=== PATIENT | male | born 1940 | race African-American/Black ===

== ENCOUNTER 2017-11-11 14:19 | Inpatient (IN) ==
[2017-11-17] MEDS ORDERED: Metoprolol Tartrate 25 MG Tablet PO PRN (00:01)
[2017-11-17] MEDS ORDERED: Chlorhexidine Gluconate 2% 1 Pack (2 Cloths) TOPICAL PRN (00:01)
[2017-11-17] MEDS ORDERED: Sodium Chlor 0.9% Inj 500 ML IV.SIG PRN (00:01)
[2017-11-17] MEDS ORDERED: Naloxone Inj 0.4 MG/ML Vial IV.PUSH PRN (00:01)
[2017-11-17] MEDS ORDERED: Dextrose 50% in Water 50 ML Vial IV.PUSH PRN (00:01)
[2017-11-17] MEDS ORDERED: Bisacodyl 10 MG Supp RECTAL PRN (00:01)
[2017-11-17] MEDS ORDERED: Acetaminophen 325 MG Tablet PO PRN (00:01)
[2017-11-17] MEDS: Levothyroxine 112 MCG Tablet PO SCH (05:43)
[2017-11-17] MEDS: Heparin - SQ 10,000 UNITS/ML Vial SQ SCH ×3 (05:43→22:18)
[2017-11-17 08:10] LABS: Hematocrit 26.9 % (39.0-51.0); Hemoglobin 8.5 gm/dL (13.0-17.0); Mean Corpuscular HGB Conc 31.8 % (32.0-36.0); Mean Corpuscular Hemoglobin 23.1 pg (27.0-34.0); Mean Corpuscular Volume 72.6 fL (80.0-100.0); Mean Platelet Volume 7.5 fL (7.0-11.0); Platelet Count 391 th/mm3 (150-450); Red Blood Count 3.71 mil/mm3 (4.50-5.90); Red Cell Distribution Width 14.9 % (11.6-17.2); White Blood Count 4.5 th/mm3 (4.0-11.0)
[2017-11-17 08:38] LABS: Calcium 8.7 mg/dL (8.5-10.1); Carbon Dioxide 26.3 meq/L (21.0-32.0); Potassium 4.3 meq/L (3.5-5.1)
[2017-11-17] MEDS: Lisinopril 20 MG Tablet PO SCH ×2 (08:49→20:27)
[2017-11-17] MEDS: Pantoprazole Sodium 20 MG DR Tablet PO SCH (08:49)
[2017-11-17] MEDS: Ferrous Sulfate 325 MG Tablet PO SCH (08:49)
[2017-11-17] MEDS: Senna/Docusate Sodium 8.6/50 MG Tablet PO SCH ×2 (08:50→20:26)
[2017-11-17] MEDS: Collagenase Oint 30 GM Tube TOPICAL SCH (08:52)
[2017-11-17] MEDS: Insulin NovoLOG Aspart Correctional Sugar Inj SQ SCH ×4 (08:56→22:18)
--- NOTE | 2017-11-17 09:50 | P.PNPOD ---
Subjective Interval history: Right leg ulcers x 2. s/p Right leg I&D and wound debridement. Pt states pain is manageable with [place]. He denies any n/v/f/h/c/sob. Physical Exam Vital signs: Vital Signs 11/16/17 20:00 11/17/17 00:00 11/17/17 04:00 Temperature 98.2 F 97.9 F 97.9 F Pulse Rate 85 79 79 Respiratory Rate 17 16 16 Blood Pressure 181/82 H 154/82 H 160/72 H Pulse Oximetry 97 98 96 Intake & Output 11/16/17 11/17/17 11/17/17 18:59 06:59 18:59 Intake Total 1240 / 1240 Output Total 1225 / 1225 Balance Weight 116.8 kg 116.3 kg Intake: Oral 1240 / 1240 Output: Urine 1225 / 1225 Narrative: Right proximal lateral leg ulcer 6.5cm x 4.5cm x 1.0cm granular wound bed, no malodor, no erythema Right distal leg ulcer ulcer 6cm x 7cm x0 granular wound bed, no erythema, no malodor No other changes from pre operative consult Medications and Allergies Active Medications: Active Medications Acetaminophen (Tylenol) 650 mg PO Q4H PRN PRN Reason: TEMP > 100.4 Al Hydroxide/Mg Hydroxide (Milk Of Marti Walker) 30 ml PO Q12H PRN PRN Reason: Mild Constipation Aspirin (Aspirin Chew) 81 mg CHEW DAILY [facility] Last Admin: 11/17/17 08:50 Dose: 81 mg Bisacodyl (Dulcolax Supp) 10 mg RECTAL DAILY PRN PRN Reason: SEVERE CONSITIPATION Collagenase (Santyl Oint) 1 applicatio TOPICAL DAILY [facility] Last Admin: 11/17/17 08:52 Dose: 1 applicatio Dextrose (D50w Vial) 50 ml IV.PUSH UNSCH PRN PRN Reason: PER HYPOGLYCEMIA PROTOCOL Enalaprilat (Vasotec Inj) 2.5 mg IV.PUSH Q6H PRN PRN Reason: SBP>160, DBP>90 Ferrous Sulfate (Ferosul) 325 mg PO DAILY [facility] Last Admin: 11/17/17 08:49 Dose: 325 mg Glucagon (Glucagon Inj) 1 mg OTHER PRN PRN PRN Reason: for Hypoglycemia Protocol Heparin Sodium (Porcine) (Heparin Inj) 5,000 units SQ Q8HR [facility] Last Admin: 11/17/17 05:43 Dose: 5,000 units Hydralazine HCl (Apresoline) 10 mg PO Q6HR PRN PRN Reason: SBP>160, DBP>90 Ceftriaxone Sodium 2,000 mg/ (Sodium Chloride) 100 mls @ 200 mls/hr IV.SIG Q24H [facility] Insulin Aspart (Novolog Insulin Suppl Scale Inj) 0 unit SQ ACHS CORRECT SUGARS [facility]; Protocol Last Admin: 11/17/17 08:56 Dose: Not Given Insulin Detemir (Levemir Inj) 40 unit SQ HS [facility] Lactulose (Lactulose Liq) 30 ml PO DAILY PRN PRN Reason: SEVERE CONSITIPATION Levothyroxine Sodium (Synthroid) 112 mcg PO DAILY@0600 [facility] Last Admin: 11/17/17 05:43 Dose: 112 mcg Lisinopril (Prinivil) 20 mg PO BID [facility] Last Admin: 11/17/17 08:49 Dose: 20 mg Morphine Sulfate (Morphine Inj) 2 mg IV.SIG MoWeFr [facility] Naloxone HCl (Narcan Inj) 0.4 mg IV.PUSH UNSCH PRN PRN Reason: SEE LABEL COMMENTS Ondansetron HCl (Zofran Inj) 4 mg IV.PUSH Q6H PRN PRN Reason: NAUSEA OR VOMITING Oxycodone/Acetaminophen (Percocet 5/325 Mg) 1 tab PO Q4H PRN PRN Reason: PAIN 6-10 Last Admin: 11/17/17 09:41 Dose: 1 tab Pantoprazole Sodium (Protonix) 20 mg PO DAILY [facility] Last Admin: 11/17/17 08:49 Dose: 20 mg Pravastatin Sodium (Pravachol) 40 mg PO [facility] Senna/Docusate Sodium (Jayde-Colace) 1 tab PO BID [facility] Last Admin: 11/17/17 08:50 Dose: 1 tab Sennosides (Senokot) 17.2 mg PO Q12H PRN PRN Reason: Moderate Constipation Sodium Chloride (Ns Flush) 2 ml IV.FLUSH PRN PRN PRN Reason: FLUSH AFTER USING IV ACCESS Sodium Chloride (Ns Flush) 2 ml IV.FLUSH BID [facility] Last Admin: 11/17/17 08:50 Dose: 2 ml Allergies Allergy/AdvReac Type Severity Reaction Status Date / Time Penicillins Allergy Unknown UNKNOW Verified 11/16/17 10:12 Home Medications Medication Instructions Recorded Confirmed Type aspirin 81 mg PO DAILY 11/16/17 11/16/17 History ferrous sulfate 325 mg PO DAILY 11/16/17 11/16/17 History glipizide 5 mg PO DAILY 11/16/17 11/16/17 History insulin glargine [Lantus U-100 40 unit SUB-Q HS 11/16/17 11/16/17 History Insulin] levothyroxine 137 mcg PO DAILY 11/16/17 11/16/17 History metformin 500 mg PO BIDPC 11/16/17 11/16/17 History omeprazole 20 mg PO DAILY 11/16/17 11/16/17 History pravastatin 40 mg PO HS 11/16/17 11/16/17 History quinapril 20 mg PO DAILY 11/16/17 11/16/17 History Results - Labs CBC & Chem 7: 11/17/17 05:25 11/17/17 05:20 Labs: Laboratory Results - last 24 hr 11/15/17 11/15/17 11/16/17 06:23 06:23 06:18 WBC 6.4 RBC 3.52 L Hgb 8.5 L Hct 25.5 L MCV 72.4 L MCH 24.2 L MCHC 33.5 RDW 15.0 Plt Count 324 MPV 7.8 Sodium 136 137 Potassium 4.4 4.6 Chloride 103 105 Carbon Dioxide 25.2 24.3 Anion Gap 8 8 BUN 13 14 Creatinine 1.06 0.99 Estimated GFR 83 L 89 POC Glucose Random Glucose 137 H 143 H Calcium 8.4 L 8.6 11/16/17 11/17/17 11/17/17 06:18 05:20 05:25 WBC 5.7 4.5 RBC 3.67 L 3.71 L Hgb 8.8 L 8.5 L Hct 26.5 L 26.9 L MCV 72.2 L 72.6 L MCH 23.9 L 23.1 L MCHC 33.1 31.8 L RDW 15.0 14.9 Plt Count 356 391 MPV 7.5 7.5 Sodium 136 Potassium 4.3 Chloride 102 Carbon Dioxide 26.3 Anion Gap 8 BUN 15 Creatinine 1.04 Estimated GFR 84 L POC Glucose Random Glucose 122 H Calcium 8.7 11/17/17 07:31 WBC RBC Hgb Hct MCV MCH MCHC RDW Plt Count MPV Sodium Potassium Chloride Carbon Dioxide Anion Gap BUN Creatinine Estimated GFR POC Glucose 118 H Random Glucose Calcium Assessment and Plan - Assessment (1) Ulcer Status: Acute (2) Ulcer of calf with fat layer exposed Code(s): L97.202 - 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
--- NOTE | 2017-11-17 09:58 | P.PN ---
Subjective Interval history: Mr. Espinosa was afebrile with HTN overnight; patioent with max BP 181/82 last night. Otherwise, stable VS. Patient reports that he is doing well today; he has continued pain in his right lower extremity. Patient feels stable to go home tomorrow with home health. No chest pain, shortness of breath, or abnormal urine/BM reported. Patient is hesitant but agreeable to titrate his antihypertensives. Physical Exam Vital signs: Vital Signs 11/16/17 20:00 11/17/17 00:00 11/17/17 04:00 Temperature 98.2 F 97.9 F 97.9 F Pulse Rate 85 79 79 Respiratory Rate 17 16 16 Blood Pressure 181/82 H 154/82 H 160/72 H Pulse Oximetry 97 98 96 Intake & Output 11/16/17 11/17/17 11/17/17 18:59 06:59 18:59 Intake Total 1240 / 1240 Output Total 1225 / 1225 Balance 15 15 Weight 116.8 kg 116.3 kg Intake: Oral 1240 / 1240 Output: Urine 1225 / 1225 Narrative: GENERAL: resting in bed; NAD. CARDIOVASCULAR: Regular rate and rhythm; systolic murmur to auscultation ( patient states this is chronic) RESPIRATORY: CTAB, normal rate. Normal breath sounds. GASTROINTESTINAL: Abdomen soft, non-tender, nondistended. Normoactive bowel sounds MUSCULOSKELETAL: Right lower extremity wounds wrapped; wound vac with ~160ml output of serosanguineous discharge. NEUROLOGICAL: Awake and alert. No obvious cranial nerve deficits. Grossly normal peripheral/motor function Results - Labs CBC & Chem 7: 11/17/17 05:25 11/17/17 05:20 Laboratory Results - last 24 hr 11/15/17 11/15/17 11/16/17 06:23 06:23 06:18 WBC 6.4 RBC 3.52 L Hgb 8.5 L Hct 25.5 L MCV 72.4 L MCH 24.2 L MCHC 33.5 RDW 15.0 Plt Count 324 MPV 7.8 Sodium 136 137 Potassium 4.4 4.6 Chloride 103 105 Carbon Dioxide 25.2 24.3 Anion Gap 8 8 BUN 13 14 Creatinine 1.06 0.99 Estimated GFR 83 L 89 POC Glucose Random Glucose 137 H 143 H Calcium 8.4 L 8.6 11/16/17 11/17/17 11/17/17 06:18 05:20 05:25 WBC 5.7 4.5 RBC 3.67 L 3.71 L Hgb 8.8 L 8.5 L Hct 26.5 L 26.9 L MCV 72.2 L 72.6 L MCH 23.9 L 23.1 L MCHC 33.1 31.8 L RDW 15.0 14.9 Plt Count 356 391 MPV 7.5 7.5 Sodium 136 Potassium 4.3 Chloride 102 Carbon Dioxide 26.3 Anion Gap 8 BUN 15 Creatinine 1.04 Estimated GFR 84 L POC Glucose Random Glucose 122 H Calcium 8.7 11/17/17 07:31 WBC RBC Hgb Hct MCV MCH MCHC RDW Plt Count MPV Sodium Potassium Chloride Carbon Dioxide Anion Gap BUN Creatinine Estimated GFR POC Glucose 118 H Random Glucose Calcium - Imaging 11/11- LE US - hypoechoic in superficial soft tissues in R mid calf. up to 3cm w/ o internal color flow. Nonspecific Renal US- normal appearance. 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 Right lower extremity wound/cellulitis/possible abscess Impression: On admission, patient was tachycardic with elevated lactic acid 3.5. CRP 19. ESR 31. PMH T2DM Cultures: Wound culture grew Klebsiella, Morganella, group B strep. Blood cultures with NGTD s/p I&D per Podiatry; wound vac in place -Infectious disease following -IV Ceftriaxone x3 weeks -Podiatry following -Can d/c once HHC and wound vac arranged. f/u with Dr. Lebron 5-6 days after -Pain control: [place]; IV morphine with dressing changes. Hyperglycemia with diabetes mellitus: acute on chronic Impression: Patient's initial glucose 729.s/p 10 units IV insulin and IV fluid hydration. Better controlled since -Continue home Lantus 40u hs, converted to Levemir -Monitor Accu-checks and cover with SSI -Diabetic diet Acute kidney injury Impression: Cr 2.57 on admission; now at baseline (1). Likely secondary to dehydration. Renal ultrasound w/ normal appearance of kidneys; no hydronephrosis -Avoid nephrotoxins Hypertension/hypothyroidism/hyperlipidemia/iron deficiency anemia: chronic -Continue home medications including [place], ferrous sulfate, statin, PPI, Synthroid DVT Prophylaxis: Heparin sq Discharge Planning: Management per Podiatry. Continue IV antibiotics at home. f/u with Podiatry (5) HTN (hypertension) Qualifiers: Hypertension type: essential hypertension Qualified Code(s): I10 - Essential (primary) hypertension (6) Hyperlipidemia Qualifiers: Hyperlipidemia type: unspecified Qualified Code(s): E78.5 - Hyperlipidemia, unspecified
[2017-11-17] MEDS: amLODIPine 5 MG Tablet PO SCH (12:39)
[2017-11-17] MEDS: hydrALAZINE 10 MG Tablet PO PRN (20:27)
[2017-11-17] MEDS: Insulin Detemir Inj 1,000 UNIT/10 ML Vial SQ SCH ×3 (20:27→20:33)
[2017-11-18] MEDS: Levothyroxine 112 MCG Tablet PO SCH (06:08)
[2017-11-18] MEDS: Heparin - SQ 10,000 UNITS/ML Vial SQ SCH ×3 (06:09→22:34)
[2017-11-18] MEDS: Senna/Docusate Sodium 8.6/50 MG Tablet PO SCH ×2 (08:41→22:31)
[2017-11-18] MEDS: Ferrous Sulfate 325 MG Tablet PO SCH (08:41)
[2017-11-18] MEDS: amLODIPine 5 MG Tablet PO SCH (08:41)
[2017-11-18] MEDS: Pantoprazole Sodium 20 MG DR Tablet PO SCH (08:41)
[2017-11-18] MEDS: Collagenase Oint 30 GM Tube TOPICAL SCH (08:44)
[2017-11-18] MEDS: Insulin NovoLOG Aspart Correctional Sugar Inj SQ SCH ×4 (08:45→22:34)
[2017-11-18] MEDS: Lisinopril 20 MG Tablet PO SCH ×2 (08:56→22:31)
[2017-11-18] MEDS ORDERED: Morphine Inj 4 MG/ML Vial IV.SIG SCH (09:00)
--- NOTE | 2017-11-18 11:24 | P.PN ---
Subjective Interval history: Mr. Pérez was mildly hypertensive (SBP ~160's) overnight. Patient reports doing well; no respiratory, bowel, or urinary concerns. Patient eager to return home once home health plan in place. Patient reports stable blood glucose levels at home. He plans to see his PCP soon after discharge. Addendum: Patient's wound vac did not arrive. Per nursing staff, he was frustrated and refused PT. Discussed with patient and his daughter (via phone); patient will reattempt PT tomorrow and have planned discharge home with [facility] tomorrow Physical Exam Vital signs: Vital Signs 11/17/17 12:00 11/17/17 16:00 11/17/17 20:00 Temperature 98.0 F 98.4 F 97.9 F Pulse Rate 83 86 86 Respiratory Rate 20 20 20 Blood Pressure 129/73 177/78 H 175/79 H Pulse Oximetry 97 78 L 98 11/18/17 00:00 11/18/17 04:00 Temperature 98.3 F 97.9 F Pulse Rate 87 87 Respiratory Rate 20 20 Blood Pressure 164/74 H 163/83 H Pulse Oximetry 97 95 Intake & Output 11/17/17 11/18/17 11/18/17 18:59 06:59 18:59 Intake Total 360 / 360 740 / 740 Output Total 1375 / 1375 840 / 840 Balance -1015 / -1015 -100 / -100 Intake: IV 100 / 100 Rocephin Inj 2,000 MG In NS Inj 100 / 100 100 ML @ 200 mls/hr IV.SIG Q24H ANY Rx#:[id number] Oral 360 / 360 640 / 640 Output: Urine 1375 / 1375 840 / 840 Stool 0 / 0 Narrative: GENERAL: resting in bed; NAD. Skin: RLE with gauze in place; some serosanguineous drainage through gauze CARDIOVASCULAR: Regular rate and rhythm; systolic murmur to auscultation ( patient states this is chronic) RESPIRATORY: CTAB, normal rate. Normal breath sounds. GASTROINTESTINAL: Abdomen soft, non-tender, nondistended. Normoactive bowel sounds MUSCULOSKELETAL: Right lower extremity wounds wrapped NEUROLOGICAL: Awake and alert. No obvious cranial nerve deficits. 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 Right lower extremity wound/cellulitis/possible abscess Impression: On admission, patient was tachycardic with elevated lactic acid 3.5. CRP 19. ESR 31. PMH T2DM Cultures: Wound culture grew Klebsiella, Morganella, group B strep. Blood cultures with NGTD s/p I&D per Podiatry; wound vac in place -Infectious disease following -IV Ceftriaxone x3 weeks via PICC -Podiatry following -Can d/c once HHC and wound vac arranged. f/u with Dr. Lebron 5-6 days after -Pain control: [place]; IV morphine with dressing changes. -PT reconsulted for recommendations Hyperglycemia with diabetes mellitus: acute on chronic Impression: Patient's initial glucose 729.s/p 10 units IV insulin and IV fluid hydration. Better controlled since -Continue home Lantus 40u hs, converted to Levemir -Monitor Accu-checks and cover with SSI -Diabetic diet Acute kidney injury Impression: Cr 2.57 on admission; now at baseline (1). Likely secondary to dehydration. Renal ultrasound w/ normal appearance of kidneys; no hydronephrosis -Avoid nephrotoxins Hypertension/hypothyroidism/hyperlipidemia/iron deficiency anemia: chronic -Continue home medications including [place], ferrous sulfate, statin, PPI, Synthroid -Will continue Amlodipine 5mg daily; will consider further increase DVT Prophylaxis: Heparin sq Discussed Condition With: Patient's daughter Discharge Planning: Management per Podiatry. Continue IV antibiotics at home. f/u with Podiatry (5) HTN (hypertension) Qualifiers: Hypertension type: essential hypertension Qualified Code(s): I10 - Essential (primary) hypertension (6) Hyperlipidemia Qualifiers: Hyperlipidemia type: unspecified Qualified Code(s): E78.5 - Hyperlipidemia, unspecified
[2017-11-18] MEDS: hydrALAZINE 10 MG Tablet PO PRN (12:55)
[2017-11-18] MEDS: Insulin Detemir Inj 1,000 UNIT/10 ML Vial SQ SCH (22:32)
[2017-11-19] MEDS: Heparin - SQ 10,000 UNITS/ML Vial SQ SCH ×2 (05:51→13:01)
[2017-11-19] MEDS: Levothyroxine 112 MCG Tablet PO SCH (05:52)
[2017-11-19] MEDS: Senna/Docusate Sodium 8.6/50 MG Tablet PO SCH (08:36)
[2017-11-19] MEDS: Lisinopril 20 MG Tablet PO SCH (08:36)
[2017-11-19] MEDS: Pantoprazole Sodium 20 MG DR Tablet PO SCH (08:36)
[2017-11-19] MEDS: amLODIPine 5 MG Tablet PO SCH (08:36)
[2017-11-19] MEDS: Ferrous Sulfate 325 MG Tablet PO SCH (08:36)
[2017-11-19] MEDS: Collagenase Oint 30 GM Tube TOPICAL SCH (08:38)
[2017-11-19] MEDS: Insulin NovoLOG Aspart Correctional Sugar Inj SQ SCH ×2 (10:24→13:00)
--- NOTE | 2017-11-19 10:47 | P.DS ---
Date of admission: 11/11/17 20:00 Primary care physician: Kody Serrano MD Brief History from admission: 77-year-old male with a past medical history significant for diabetes mellitus, hypertension, hypothyroidism, hyperlipidemia and anemia presents the emergency department for evaluation of a right lower extremity wound. The patient is a poor historian and cannot tell me how long he has had the wound. He also does not know what happened to his leg that caused the wound. He reports that yesterday it was very painful and it swelled up and then burst open with foul- smelling material and blood coming out of it. The patient denies any fever/ chills. States it is less painful now that it is draining. He denies any chest pain or shortness of breath. No abdominal pain. No nausea/vomiting/ diarrhea. No lateralizing signs/symptoms. DS: Diagnosis - Discharge Diagnosis (1) Ulcer of calf with fat layer exposed Status: Acute (2) Wound of right lower extremity Status: Acute (3) T2DM (type 2 diabetes mellitus) Status: Chronic (4) PAUL (acute kidney injury) Status: Acute (5) HTN (hypertension) Status: Chronic (6) Hyperlipidemia Status: Acute DS: Summary Hospital Course: 77-year-old male with a past medical history significant for diabetes mellitus, hypertension, hypothyroidism, hyperlipidemia and anemia who presented with right lower extremity wound. Right lower extremity wound/cellulitis/possible abscess. On admission, patient was tachycardic with elevated lactic acid 3.5. CRP 19. ESR 31. PMH T2DM,. Cultures: Wound culture grew Klebsiella, Morganella, group B strep. Blood cultures with NGTD s/p I&D per Podiatry; wound vac in place. Infectious disease following. IV Ceftriaxone x3 weeks via PICC,. Podiatry following. f/u with Dr. Lebron 5-6 days after. Pain control: [place]. PT with [facility] recs. Hyperglycemia with diabetes mellitus: acute on chronic. Patient' s initial glucose 729.s/p 10 units IV insulin and IV fluid hydration. Improved, . Continue home Levemir 40 units. Encourage Diabetic diet,. Acute kidney injury, . Cr 2.57 on admission; now at baseline (1). Likely secondary to dehydration. Renal ultrasound w/ normal appearance of kidneys; no hydronephrosis. Hypertension/hypothyroidism/hyperlipidemia/iron deficiency anemia: chronic and stable during hospitalization. - Time Spent with Patient Total time spent providing and/or coordinating discharge services: Greater than 30 minutes Exam Vital signs: Vital Signs 11/18/17 12:00 11/18/17 17:42 11/18/17 20:00 Temperature 98.6 F 97.8 F 98.5 F Pulse Rate 87 89 98 H Respiratory Rate 18 17 18 Blood Pressure 176/78 H 155/76 H 134/79 Pulse Oximetry 98 91 L 97 11/19/17 00:00 11/19/17 04:00 Temperature 98.1 F 97.8 F Pulse Rate 83 75 Respiratory Rate 16 16 Blood Pressure 155/75 H 121/68 Pulse Oximetry 95 96 Intake & Output 11/18/17 11/19/17 11/19/17 18:59 06:59 18:59 Intake Total 840 / 840 340 / 340 Output Total 1800 / 1800 1050 / 1050 Balance -960 / -960 -710 / -710 Weight 115.8 kg Intake: IV 100 / 100 Rocephin Inj 2,000 MG In NS Inj 100 / 100 100 ML @ 200 mls/hr IV.SIG Q24H ANY Rx#:[id number] Oral 840 / 840 240 / 240 Output: Urine 1800 / 1800 1050 / 1050 Other: # Bowel Movements 0 - Constitutional no acute distress - Routine HEENT Exam Head: Present: normocephalic ENT: Present: mucous membranes moist - Routine Neck Exam Present: supple - Routine Cardiovascular Exam Present: RRR - Routine Abdominal Exam Present: soft, normoactive bowel sounds Results Procedures completed during hospitalization: See DC summary. Labs on day of discharge: Labs from last 24 hours 11/19/17 11/18/17 11/18/17 08:28 20:33 16:21 POC Glucose 172 H 284 H 207 H 11/18/17 12:42 POC Glucose 181 H Discharge Plan - Discharge Disposition Patient Disposition: /Home Health Service - Discharge Condition Condition: Stable - Physicians Team Primary Care Provider: Kody Serrano Attending Provider: Brenda Cardoso Other Providers: Stevie Briggs MD ; Annalise Lebron DPM - Rxs /Orders / Referrals /Forms Prescriptions: New amlodipine [Norvasc] 5 mg Tablet 5 mg PO DAILY Qty: 30 RF: 30 ceftriaxone 2 gram Recon Soln 2,000 mg IV Q24H RF: 0 hydralazine 10 mg Tablet 10 mg PO Q6HR PRN (Reason: Sbp>160, Dbp>90) 30 Days Qty: 120 RF: 0 lisinopril 20 mg Tablet 20 mg PO BID 30 Days Qty: 60 RF: 0 oxycodone-acetaminophen 5-325 mg Tablet 1 tab PO Q4H PRN (Reason: PAIN 6-10) 3 Days Qty: 10 RF: 0 Continue aspirin 81 mg Tablet,Chewable 81 mg PO DAILY ferrous sulfate 325 mg (65 mg iron) Tablet 325 mg PO DAILY glipizide 5 mg Tablet 5 mg PO DAILY insulin glargine [Lantus U-100 Insulin] 100 unit/mL Solution 40 unit SUB-Q HS levothyroxine 137 mcg Tablet 137 mcg PO DAILY metformin 500 mg Tablet 500 mg PO BIDPC omeprazole 20 mg Tablet,Delayed Release (Dr/Ec) 20 mg PO DAILY pravastatin 40 mg Tablet 40 mg PO HS Discontinued quinapril 20 mg Tablet 20 mg PO DAILY Referrals: Stevie Briggs MD [Physician] - 12/04/17 Annalise Lebron DPM [Physician] - 11/25/17 Kody Serrano MD [Primary Care Provider] - 11/25/17
--- NOTE | 2017-11-20 09:31 | P.PNWCN ---
Wound/Pressure Injury - Patient Status Premedicated for Pain Prior to Dressing Change: Yes - Wound Right Leg Wound Assessment: Ongoing Wound Type: Traumatic Wound Is This a Chronic Wound: Yes Requested from Provider a Wound Care Consult: No Length: 6.4 Width: 7.8 Depth: 0.3 Wound Bed Appearance: Red (100% granulated tissue) Surrounding Tissue Appearance: Taut Surrounding Tissue Temperature: Cool Drainage Description: Serosanguinous Drainage Amount: Minimal Drainage Odor: No Odor Dressing Status: Changed Cleansing Solution: Saline Wound Packing Type: Collagen Primary Dressing: Gauze Pad Cover Dressing: Adhesive Dressing Wound Dressing Change Date: 11/19/17 Right proximal Wound Assessment: Discharge Wound Type: Abscess Is This a Chronic Wound: No Requested from Provider a Wound Care Consult: No Length: 7.1 Width: 5.3 Depth: 0.8 Wound Bed Appearance: Red, Shiny Surrounding Tissue Appearance: Taut Surrounding Tissue Temperature: Cool Drainage Description: Serosanguinous Drainage Amount: Moderate Drainage Odor: No Odor Dressing Status: Changed Cleansing Solution: Saline Wound Packing Type: Woundvac Sponge Cover Dressing: Adhesive Dressing Wound Dressing Change Date: 11/19/17 (Home vac applied.) Wound Vac - Wound Vac Right proximal Pressure Setting (mmHg): 125 Mode Setting: Continuous Drainage Description: Serosanguinous Foam type: Other ([employer] [facility]) - Additional Information Puracol AG applied to right distal wound covered with gentle boarder foam dressing.Wound vac applied to proximal wound with no leaks noted.
== END 2017-11-19 18:45 | disposition home health service (06) ==
LOC: N04 20:00
PROVIDERS: ADMIT Family Medicine; ATTEND Family Medicine